=== PATIENT | female | born 1960 | race Caucasian/White ===

== ENCOUNTER 2019-11-01 15:45 | Emergency (ER) | payer OTHER ==
[~2019-11-01] VITALS: Ht 160 cm; Wt 68.0 kg
[~2019-11-01 15:45] MED LIST: ALBU18HF2 IH; AMLO5TAB9 PO; TRIA1TAB3 PO
[2019-11-01 15:53] VITALS: BP 169/110
[2019-11-01] MEDS ORDERED: SIMV10TA98 PO (16:13)
[2019-11-01] MEDS ORDERED: ALLO100T PO (16:13)
[2019-11-01 16:21] LABS: APPEARANCE,URINE Clear (CLEAR); BILIRUBIN,URINE Negative (NEGATIVE); BLOOD, URINE Trace-intact Ery/uL (NEGATIVE); COLOR,URINE Yellow (YELLOW); KETONES,URINE Negative (NEGATIVE); LEUKOCYTE ESTERASE ,URINE Negative (NEGATIVE); NITRITE, URINE Negative (NEGATIVE); PROTEIN,URINE Negative (NEGATIVE); UGLUCOSE Negative (NEGATIVE); UROBILINOGEN,URINE 0.2 EU/dL (0.2)
[2019-11-01 16:38] LABS: BACTERIA,URINE Few /HPF (None Seen); SQUAMOUS EPITHELIAL CELL,UR Few /HPF (None Seen); WBC,URINE 0-2 /HPF (0-3)
== END 2019-11-01 18:16 | disposition home or self-care (01) ==
LOC: ER 15:50
DX: B34.9 Viral infection, unspecified (principal); I10 Essential (primary) hypertension; Z90.49 Acquired absence of other specified parts of digestive tract; Z98.890 Other specified postprocedural states; Z90.89 Acquired absence of other organs; Z98.51 Tubal ligation status; Z79.899 Other long term (current) drug therapy; Z90.710 Acquired absence of both cervix and uterus
CPT/HCPCS: 81000-TC

== ENCOUNTER 2022-12-27 20:03 | Emergency (ER) | payer OTHER ==
[~2022-12-27] VITALS: Ht 154.9 cm; Wt 70.3 kg
[~2022-12-27 20:03] MED LIST changes: +ALLO100T PO; +AMLO-212 PO; -AMLO5TAB9 PO; +SIMV10TA98 PO
--- NOTE | 2022-12-27 20:15 | NUR ---
BIBS C/O CP X 5 DAYS, "FEELS HEAVY", NONRADIATING NOT RELIEVED BY OTC MEDS DENIES N/V. PT IS AAO X 4, BREATHING UNLABORED, STABLE ON ROOM AIR. SR ON THE MONITOR, HR IS 73. PT RATES PAIN AT 10/10. PT ATTACHED TO MONITOR AND PULSE OX. AWAITING MD DENSON.
--- NOTE | 2022-12-27 20:17 | NUR ---
DR DE JESUS AT BEDSIDE
--- NOTE | 2022-12-27 20:26 | NUR ---
[facility] AT BEDSIDE
[2022-12-27 20:40] LABS: BASOPHILS # (AUTO) 0.1 K/uL (0.0-0.2); EOSINOPHILS % (AUTO) 1.8 % (0.0-6.0); HEMATOCRIT 43 % (33-45); HEMOGLOBIN 14.3 g/dL (11.5-14.8); LYMPHOCYTES # (AUTO) 2.7 K/uL (0.8-4.8); LYMPHOCYTES % (AUTO) 24.7 % (20.0-44.0); MEAN CORPUSCULAR HGB CONC 33 g/dl (31.0-36.0); MEAN CORPUSCULAR VOLUME 82 fL (82-100); MONOCYTES # (AUTO) 0.6 K/uL (0.1-1.30); MONOCYTES % (AUTO) 5.8 % (2.0-12.0); NEUTROPHILS # (AUTO) 7.4 K/uL (1.8-8.9); NEUTROPHILS % (AUTO) 66.7 % (43.0-81.0); PLATELET COUNT (AUTO) 441 K/uL (150-450); RED BLOOD CELL COUNT(AUTO) 5.23 MIL/uL (4.0-5.2); WHITE BLOOD COUNT (AUTO) 11.1 K/uL (4.3-11.0)
[2022-12-27 20:51] LABS: CALCIUM, SERUM 10.5 mg/dL (8.5-10.1); CARBON DIOXIDE 27 mmol/L (21-32); CHLORIDE 101 mmol/L (98-107); CREATININE 0.9 mg/dL (0.6-1.3); GLUCOSE 146 mg/dL (74-106); SODIUM SERUM 137 mmol/L (136-145); UREA NITROGEN, BLOOD 8 mg/dL (7-18)
[2022-12-27 20:53] LABS: POTASSIUM 2.7 mmol/L (3.5-5.1)
--- NOTE | 2022-12-27 20:53 | NUR ---
POTASSIUM 2.7 , MD AWARE
[2022-12-27 20:56] LABS: ALANINE AMINOTRANSFERASE 76 U/L (12-78); ALBUMIN 4.2 g/dL (3.4-5.0); ALKALINE PHOSPHATASE 152 U/L (46-116); ASPARTATE AMINOTRANSFERASE 37 U/L (15-37); BILIRUBIN,DIRECT 0.1 mg/dL (0.0-0.2); BILIRUBIN,TOTAL 0.4 mg/dL (0.2-1.0); TOTAL PROTEIN, SERUM 7.9 g/dL (6.4-8.2)
[2022-12-27] MEDS ORDERED: POTASSIUM CHLORIDE 20 MEQ TAB.PRT.SR PO ONE ×2 (21:00→23:30)
[2022-12-27] MEDS ORDERED: IV NS 0.9% 1,000 ML IV ONE (21:30)
[2022-12-27] MEDS ORDERED: POTA20TA83 PO (21:54)
--- NOTE | 2022-12-27 22:12 | NUR ---
POTASSIUM 2.6, MD AWARE
--- NOTE | 2022-12-28 00:12 | NUR ---
Patient discharged to home in stable condition. Written and verbal after care instructions given. Patient verbalizes understanding of instruction. Pt ambulatory with a steady gait
[2022-12-28 00:13] VITALS: BP 136/84
== END 2022-12-28 00:13 | disposition home or self-care (01) ==
LOC: ER 20:06
DX: R07.89 Other chest pain (principal); E87.6 Hypokalemia; I10 Essential (primary) hypertension; E78.5 Hyperlipidemia, unspecified; F41.9 Anxiety disorder, unspecified; Z90.49 Acquired absence of other specified parts of digestive tract; Z79.899 Other long term (current) drug therapy
CPT/HCPCS: 99285; 96360; 71045; 93005 ×3; 85025; 80048; 80076; 83735; 36415; 84484 ×2; 84132; J7030

== ENCOUNTER 2023-07-13 16:06 | Emergency (ER) | payer OTHER ==
[~2023-07-13] VITALS: Ht 154.9 cm; Wt 70.8 kg
[~2023-07-13 16:06] MED LIST changes: +POTA20TA83 PO
[2023-07-13] MEDS ORDERED: ACETAMINOPHEN ES 500 MG TABLET ONE (17:41)
[2023-07-13] MEDS ORDERED: diphenhydrAMINE HCL 50 MG/ML VIAL ONE (17:41)
[2023-07-13] MEDS: diphenhydrAMINE HCL 50 MG/ML VIAL IV ONE (17:47)
[2023-07-13] MEDS: IV NS 0.9% 1,000 ML BAG IV ONE (17:48)
[2023-07-13] MEDS: ACETAMINOPHEN 325 MG TABLET PO ONE (17:48)
[2023-07-13 17:58] LABS: BASOPHILS # (AUTO) 0.1 K/uL (0.0-0.2); BASOPHILS % (AUTO) 1.2 % (0.0-2.0); EOSINOPHILS # (AUTO) 0.2 K/uL (0.0-0.7); EOSINOPHILS % (AUTO) 3.1 % (0.0-6.0); HEMATOCRIT 44 % (33-45); HEMOGLOBIN 14.8 g/dL (11.5-14.8); LYMPHOCYTES # (AUTO) 1.8 K/uL (0.8-4.8); LYMPHOCYTES % (AUTO) 24.4 % (20.0-44.0); MEAN CORPUSCULAR HEMOGLOBIN 28 PG (26.0-33.0); MEAN CORPUSCULAR HGB CONC 33 g/dl (31.0-36.0); MEAN CORPUSCULAR VOLUME 83 fL (82-100); MONOCYTES # (AUTO) 0.5 K/uL (0.1-1.30); MONOCYTES % (AUTO) 7.1 % (2.0-12.0); NEUTROPHILS # (AUTO) 4.8 K/uL (1.8-8.9); NEUTROPHILS % (AUTO) 64.2 % (43.0-81.0); PLATELET COUNT (AUTO) 442 K/uL (150-450); RED BLOOD CELL COUNT(AUTO) 5.34 MIL/uL (4.0-5.2); RED CELL DISTRIBUTION WIDTH 14.7 % (11.5-15.0); WHITE BLOOD COUNT (AUTO) 7.5 K/uL (4.3-11.0)
[2023-07-13 18:12] LABS: CALCIUM, SERUM 10.2 mg/dL (8.5-10.1); CREATININE 0.9 mg/dL (0.6-1.3); POTASSIUM 3.7 mmol/L (3.5-5.1)
[2023-07-13 18:30] LABS: BILIRUBIN,TOTAL 0.4 mg/dL (0.2-1.0); TOTAL PROTEIN, SERUM 8.1 g/dL (6.4-8.2)
[2023-07-13] MEDS ORDERED: KETOROLAC TROMETHAMINE 15 MG/ML VIAL IM ONE (19:30)
[2023-07-13] MEDS ORDERED: KETOROLAC TROMETHAMINE 15 MG/ML VIAL ONE (19:38)
[2023-07-13] MEDS ORDERED: CYCLOBENZAPRINE 10 MG TABLET ONE (19:39)
[2023-07-13] MEDS: CYCLOBENZAPRINE 10 MG TABLET PO ONE (19:43)
[2023-07-13] MEDS: KETOROLAC TROMETHAMINE 15 MG/ML VIAL IV ONE (19:43)
[2023-07-13] MEDS ORDERED: NAPR-1164 PO (20:34)
[2023-07-13 20:44] VITALS: BP 126/84; TEMP 98; O2SAT 97
== END 2023-07-13 20:45 | disposition home or self-care (01) ==
LOC: ER 16:09
DX: R51.9 Headache, unspecified (principal); I10 Essential (primary) hypertension; E78.5 Hyperlipidemia, unspecified; F41.9 Anxiety disorder, unspecified; Z90.49 Acquired absence of other specified parts of digestive tract; Z90.710 Acquired absence of both cervix and uterus
CPT/HCPCS: 36415; 70450-TC; 80048-TC; 80076-TC; 85025-TC; J1200; J1885; J7030